=== PATIENT | female | born 1935 | race Caucasian/White ===

== ENCOUNTER 2016-07-06 13:00 | Day surgery (SDC) | payer MEDICARE ==
[~2016-07-06] VITALS: Ht 165.1 cm; Wt 60.3 kg
[~2016-07-06 13:00] MED LIST: 0.9% Sodium Chloride 1,000 ML IV SCH; ASPI81TA3 PO; ATOR40TA69 PO; CARV3.122 PO; CITA20TA11 PO; DIPH1TAB PO; FLAX100038 PO; IRON PO; LEVO100T45 PO; Lactated Ringer's 1,000 ML IV ONE; OMEP40CA36 PO; Sodium Chloride LOK Flush 10 mL Syringe IV PRN; fentaNYL-PF 50 mCg/mL 2 mL Inj IVPUSH PRN
[2016-07-06 13:51] VITALS: BP 146/70; PULSE 62; RESP 16; O2SAT 100
--- NOTE | 2016-07-06 15:30 | PCM.ENDEGD ---
EGD Date of Service: July 06, 2016 Physician Ayaz Hung MD Pre Procedure Diagnosis: Dysphagia and diarrhea Post Procedure Dx & Findings: Fundic polyp Procedure Esophagogastroduodenoscopy PROCEDURE IN DETAIL: After proper sedation, Olympus video endoscope was inserted into patient's mouth and esophagus was successfully intubated. Scope introduced esophagus. Esophagus showed normal shiny whitish mucosa consistent with squamous cell component. Z line was intact at 30 cm from the incisors. The scope further advanced to the stomach. Stomach showed normal shiny mucosa with normal appearing rugae folds without any ulcer mass erosion. Stomach showed a few small fundic polyps less than 2 mm in size. Sampling biopsies obtained. Cardia fundus body antrum pylorus were all visualized. Retroflexion was done. Stomach was easily inflated and deflatable using air. Scope further events to the distal duodenum. Duodenum revealed normal villous structures with normal appearing folds without any mass ulcer erosion. 5 biopsies obtained to rule out celiac disease. Impression Fundic polyps Recommendation Biopsies Presedation Assessment Risks and Benefits Informed consent was obtained from the patient after all risks and benefits including but not limited to drug reaction, infection, pain, bleeding, perforation, as well as alternatives were discussed. Patient monitoring Continuous pulse oximetry, cardiac monitoring, blood pressure monitoring, IV access, and oxygen at 2L per nasal cannula. Periprocedural Fentanyl: Fentanyl 125mcg Incrementally Midazolam: Midazolam 5mg Incrementally Complications There were no periprocedural complications identified. Post Procedure Plan Post Procedure Recommendations 1. Restrict activities today. 2. Resume normal activities in the morning. 3. Resume medications. 4. GERD behavioral modification: - Avoid fatty, acidic, spicy, large meals - Do not lie down after meals - Do not eat or drink anything for at least 2 1/2 hours before going to bed at night - Discontinue tobacco and alcohol - Decrease or avoid caffeine - Avoid chocolate and mints - Decrease weight - Avoid aspirin and non steroidal anti-inflammatory agents (NSAID) such as Aleve, Advil, Mobic, Naproxen, Ibuprofen, etc 5. Add proton pump inhibitor. Take 30 minutes before 1st meal of the day. 6. Patient informed of normal post procedure side effects as bloating, drowsiness, blood streaking in the stool 7. If gastric biopsy reveal H.pylori, continue with appropriate treatment 8. If small bowel biopsy reveals celiac, continue with appropriate treatment 9. Please don't hesitate to call me with any questions Ayaz Hung MD July 06, 2016 15:30
--- NOTE | 2016-07-06 15:32 | PCM.ENDCOL ---
Colonoscopy Date of Service: July 06, 2016 Physician Ayaz Hung MD Pre Procedure Diagnosis: Diarrhea personal history of colon polyp Post Procedure Dx & Findings: Diverticula hemorrhoids Procedure Colonoscopy PROCEDURE IN DETAIL: Prep adequate Withdrawal time 9 minutes After unremarkable rectal examination the Olympus video colonoscope was inserted patient's anal canal and was advanced to cecum. Landmarks were identified including the ileocecal valve and appendiceal orifice. Scope advanced into the terminal ileum. The visualized terminal ileum showed normal villous structures without any ulcer mass or erosions. Scope was withdrawn systematically. Visualized colonic mucosa showed healthy shiny mucosa with normal healthy-appearing vasculature. Few small diverticula noted in the sigmoid colon. Random biopsies obtained from the cecum to the rectum for workup of diarrhea. In the rectum retroflexion was done which showed hemorrhoids. Anal canal was inspected carefully on the way out and hemorrhoids noted. Impression Normal TI Normal colon and random biopsies obtained Personal history of colon polyp Diverticuli Hemorrhoids Recommendation Repeat colonoscopy 5 years Diverticular diet Presedation Assessment Risks and Benefits Informed consent was obtained from the patient after all risks and benefits including but not limited to drug reaction, infection, pain, bleeding, perforation, as well as alternatives were discussed. Patient monitoring Continuous pulse oximetry, cardiac monitoring, blood pressure monitoring, IV access, and oxygen at 2L per nasal cannula. Complications There were no periprocedural complications identified. Post Procedure Plan Post Procedure Recommendations 1. Restrict activities today. 2. Resume normal activities in the morning. 3. Resume medications. 4. Patient informed of normal post procedure side effects as bloating, drowsiness, blood streaking in the stool. 5. average risk CRCS. If colon polyps come back as: -Hyperplastic- can repeat colonoscopy in 10 years -Tubular adenoma- repeat colonoscopy in 5 years -Tubulovillous/villous adenoma- repeat colonoscopy in 3 years -If any dysplasia- return to clinic as soon as possible 6. Please don't hesitate to call me with any questions. Ayaz Hung MD July 06, 2016 15:31
[2016-07-06 15:33] VITALS: BP 135/61; PULSE 66; RESP 16; O2SAT 99
[2016-07-06 15:43] VITALS: BP 118/49; PULSE 67; RESP 16; O2SAT 100
[2016-07-06 15:45] VITALS: BP 134/57; PULSE 62; RESP 16; O2SAT 100
--- NOTE | 2016-07-09 14:33 | PATH ---
SURGICAL PATHOLOGY Attending Physician:Ayaz Hung M.D. CASE STATUS: Signed Out PATIENT NAME: HOLDEN STOKES PID: [id number] : 1935 DATE COLLECTED:07/06/2016 00:00 SPECIMEN: 1: Duodenum, Biopsy 2: Stomach, Polyp, Biopsy 3: Colon, Biopsy CLINICAL HISTORY: 1. DUODENAL BIOPSY 2. GASTRIC POLYP 3. RANDOM COLON BIOPSIES FINAL DIAGNOSIS: A. Duodenal Biopsy: Duodenal mucosa with no diagnostic abnormality. Negative for active inflammation, features of sprue, dysplasia, or malignancy. B. Gastric Polyp, Biopsy: Fundic gland polyp. Negative for dysplasia and malignancy. C. Random Colon Biopsies: Colonic mucosa with no diagnostic abnormality. Negative for active, chronic, and microscopic colitis. Negative for dysplasia and malignancy. ICD 10: K29.7 GROSS DESCRIPTION: The specimen is received in three formalin filled containers labeled with the patient's name. 1). The specimen is sublabeled "duodenal" and consists of 4 tiny portions of tissue which aggregate to 0.3 x 0.3 x 0.2 CM. The specimen is entirely submitted in cassette 1A. 2). The specimen is sublabeled "gastric polyp" and consists of a 0.3 x 0.2 x 0.2 CM portion of tissue which is entirely submitted in cassette 2A. 3). The specimen is sublabeled "random colon" and consists of multiple portions of tissue which aggregate to 0.4 x 0.4 x 0.3 CM. The specimen is entirely submitted in cassette 3A. 07/07/2016 [facility] ICD-9 CODES: CPT CODES: 1: 13466 2: 98937 3: 13815 Electronically Signed Out Lissett Kidd MD [facility] [address], [place] [address] Technical component performed at [facility], [facility] [address], [place], [address]
== END 2016-07-06 23:59 | disposition home or self-care (01) ==
LOC: END 13:00
PROVIDERS: ATTEND Internal Medicine
DX: K57.30 Diverticulosis of large intestine without perforation or abscess without bleeding (principal); K64.8 Other hemorrhoids; K31.7 Polyp of stomach and duodenum; R19.7 Diarrhea, unspecified; K22.4 Dyskinesia of esophagus; Z86.010 Personal history of colon polyps; Z79.82 Long term (current) use of aspirin; Z79.899 Other long term (current) drug therapy; Z87.891 Personal history of nicotine dependence
CPT/HCPCS: 43239; 45380; 88305; 99153; G0500; J7030

== ENCOUNTER 2016-07-21 09:37 | Observation (INO) | payer MEDICARE ==
[~2016-07-21] VITALS: Ht 165.1 cm; Wt 62.6 kg
[2016-07-21] VITALS (9 sets, daily range): BP systolic 122–168; BP diastolic 61–95; PULSE 64–74; RESP 14–21; O2SAT 98–100
[~2016-07-21 09:37] MED LIST changes: -0.9% Sodium Chloride 1,000 ML IV SCH; -Lactated Ringer's 1,000 ML IV ONE; -Sodium Chloride LOK Flush 10 mL Syringe IV PRN; -fentaNYL-PF 50 mCg/mL 2 mL Inj IVPUSH PRN
--- NOTE | 2016-07-21 09:51 | ED.REPORT ---
HPI-Abd Pain F 2 and Over Date of Service July 21, 2016 ED Provider: Derrick Chung MD History of Present Illness: Please note that the wrong template was used accientally This is a chest pain patient, not a pediatric abdominal pain. 81 y/o female with a hx of CAD (s/p CABG), peripheral vascular disease status post endarterectomy and HTN presents to the ED complaining of intermittent chest pain, onset last night, which radiates to her neck. The pt reports she has had the pain for a month but yesterday's episode was significantly worse.The pain always starts in the evening and lasts about 5 minutes. Last night her pain began at 1900 and was intermittent until 2029. The pt reports the pain resolves when she lays down but returns after she gets up. She had to lay down 4 times yesterday, which was unusual. Her sx are not exacerbated with exertion. Her sx resolved after she took Nitroglycerin last night. The pt reports she does not have any pain currently but her chest is sore. Associated sx include diaphoresis, nausea and slight lightheadedness. She denies SOB, palpitations, lower extremity edema, fever, cough and hx of blood clots. The pt did not take an Aspirin today. The pt reports these sx are not similar to the sx she experienced before her bypass. She was dyspneic then but not this time. The pt also had an endoscopy for possible GERD which resulted normal. She has never had a stress test. Nursing Notes Stated Complaint: CHEST PAIN Chief Complaint: Chest Pain Nursing Notes Reviewed: Yes (nPario, Vascular Therapies not reconciled) Allergies: Coded Allergies: Penicillins (Verified Allergy, Mild, RASH, 07/05/16) Uncoded Allergies: PENICILLIN (Allergy, Unknown, 07/16/14) Scheduled Aspirin Chew (Aspirin Chew) 81 Mg Chew 81 MG PO DAILY Atorvastatin Calcium (Atorvastatin Calcium) 40 Mg Tablet 40 MG PO DAILY Carvedilol (Carvedilol) 3.125 Mg Tablet 3.125 MG PO BID Citalopram (Citalopram) 20 Mg Tablet 20 MG PO DAILY Flaxseed Oil (Accord-3 Flaxseed Oil) 1,000 Mg Capsule 1,000 MG PO DAILY Ipratropium [place] (Ipratropium [place] 0.06% Nasal) 15 Ml [place] 1 SPRAY NS TID Levothyroxine (Levoxyl) 100 Mcg Tablet 100 MCG PO DAILY Omeprazole (Omeprazole) 40 Mg Capsule.dr 40 MG PO DAILY Miscellaneous Medications Diphenoxylate/Atropine 2.5-0.025 mg (Lomotil 2.5-0.025 mg) 1 Each Tablet 1 TABLET PO General Time Seen by MD: 09:50 Chief Complaint Other (Chest pain) Hx Obtained from: Patient Arrived by: Walk-in Sudden in Onset?: No Onset Occurred: Yesterday Symptom Duration: 1 - 15 minutes Progression since onset: Resolved Quality: Painful Severity: Current: No pain currently Severity: Maximum: Moderate Recent Healthcare: Recent doctor visit Similar Sx Previous: No Past Medical History Past Medical History Coronary artery Disease status post CABG History of non-Hodgkin's lymphoma in 2012 Previous history of epilepsy and diagnosed in 1971, reports last seizure 1989 Hypothyroidism Hyperlipidemia GERD HTN Depression Past Surgical History CABG three-vessel in August 2012 Carotid endarterectomy on the right 2006 Fistulectomy 1986 Several toe surgery Hysterectomy 1976 Tinsley's neuroma surgery in 1969 Colonoscopy notable for hemorrhoids and diverticula in July 2016 Upper endoscopy gastric fundus polyp July 2016 Smoking History Former Smoker Ambulatory Status Ambulatory Status: Independent Review of Systems Constitutional: Denies: Fever Respiratory: Denies: Non-productive cough, Shortness of breath Cardiovascular: Reports: Chest pain, Denies: Edema, Palpitations GI: Reports: Nausea Musculoskeletal: Reports: Neck pain Complete sys rev & neg: except as marked. Skin: Reports Diaphoresis Neurologic: Reports: Lightheaded Physical Exam Initial Vital Signs Vital Signs (First) Date Time Temp Pulse Resp B/P Pulse Ox O2 Delivery O2 Flow Rate FiO2 07/21/16 09:40 36.2 70 16 168/71 100 Room Air Initial VS: Reviewed, Vital signs normal, Vital signs abnormal (mild HTN) Head / Eyes: Atraumatic, Normocephalic, PERRL Neck: Supple, Non-tender, Full range of motion Extremities: Vascular intact, Neuro intact, No swelling, No tenderness Skin: Warm, Dry, No cyanosis Neurologic: Alert, Oriented, Nonfocal General / Constitutional: Awake, Alert, No apparent distress, Well appearing Respiratory / Chest: Atraumatic, Breath sounds NL, Breath sounds = bilat, No respiratory distress, No rales, No rhonchi, No wheezing Cardiovascular: Heart rate NL, Regular rhythm, Heart sounds NL, No gallop, No murmurs, No rubs Abdomen: Atraumatic, Soft, Non-tender Back: Atraumatic, Full range of motion Upper Extremity / MS: Atraumatic, Full range of motion, Neurologic intact, Vascular intact Lower Extremity / Pelvis / MS: Atraumatic, Full range of motion, Neurologic intact, Vascular intact Interpretation & Diagnostics Lab Results Interpretation Result Diagram: 07/21/16 1011 07/21/16 1011 Test 07/21/16 05:05 07/21/16 10:11 07/21/16 11:25 Pro-B-Type Natriuretic Peptide 308.9pg/mL (0-738) White Blood Count 4.2th/mm3 (3.8-10.1) Red Blood Count 4.77mil/mm3 (3.90-5.20) Hemoglobin 13.3g/dL (12.0-15.6) Hematocrit 40.2% (35.0-46.0) Mean Corpuscular Volume 84.3fL (81-100) Mean Corpuscular Hemoglobin 27.9pg (27.0-35.0) Mean Corpuscular Hemoglobin Concent 33.1% (32.0-37.0) Red Cell Distribution Width 13.1% (12.3-15.4) Platelet Count 173bil/L (150-400) Neutrophils (%) (Auto) 63.9% (40-74) Lymphocytes (%) (Auto) 22.6% (14-46) Monocytes (%) (Auto) 8.3% (4-12) Eosinophils (%) (Auto) 4.5% (0-5) Basophils (%) (Auto) 0.5% (0-3) Sodium Level 136mEq/L (134-144) Potassium Level 4.0mEq/L (3.5-5.2) Chloride Level 98mEq/L (97-108) Carbon Dioxide Level 26mmol/L (18-29) Blood Urea Nitrogen 12mg/dL (8-27) Creatinine 0.54mg/dL (0.57-1.00) Estimat Glomerular Filtration Rate 156mL/min (>59) Glucose Level 118mg/dL (60-99) Calcium Level 9.3mg/dL (8.5-10.1) Magnesium Level 2.0mg/dL (1.6-2.6) Total Bilirubin 0.4mg/dL (0.0-1.2) Aspartate Amino Transf (AST/SGOT) 17U/L (0-50) Alanine Aminotransferase (ALT/SGPT) 15U/L (0-32) Alkaline Phosphatase 95U/L (25-165) Troponin T 0.010ug/L (0.0-0.011) Total Protein 6.3g/dL (6.4-8.4) Albumin 4.0g/dL (3.4-5.0) Hold Urine Received (Received) Lab Results Interpretation: CBC normal CMP normal Troponin #1 negative X-Ray Chest Interpretation Chest Xray Interpretation: IMPRESSION: No acute cardiopulmonary disease. Dictated by: Petros Engle M.D. on 07/21/2016 at 10:50 Approved by: Petros Engle M.D. on 07/21/2016 at 10:51 View: Portable, 1 view Interpretation / Wet Read by: Interpret - Radiologist ECG Interpretation ECG Interpretation: Normal sinus rhythm. Rate 69 No abnormalities. Time: 10:02 Interpreted by: ED physician Re-Eval/Medical Decision Med Decision/Clinical Course This is an 81-year-old female known coronary disease status post coronary bypass , peripheral vascular disease status post endarterectomy, who presents with recurrent episodes of chest discomfort. Symptoms are somewhat atypical, and anchoring intermittently over the past several weeks to month, but escalated in traumatic severity yesterday evening. She had multiple bouts of discomfort. It is not clearly exertional but as a pressure tightness on the left side of the chest. She is followed by her bit tripoler Dr. Leon, and call the office due to some of these episodes this past week and received a prescription for nitroglycerin which she filled yesterday, and then last night when the symptoms escalated cheese the nitroglycerin and the symptoms resolved. The patient is currently asymptomatic. She appears clinically well the normal physical exam. Her EKG is normal. Starting blood work is normal. However overall HEART score is 5 and admission for serial enzymes and probable stress testing is warranted. Patient received aspirin which he has not yet had today. She had Nitropaste applied. Chest x-ray is normal. With the on-call bit tripoler, but given the patient's initial EKG and troponins are normal-the current plan is admission to the hospitalist service for serial enzymes and probable stress testing, with the recommendation should any abnormalities or issues occur, that cardiology be directly consulted at that time. Source of Hx: Old records Re-Evaluation/Progress : Time of Eval: 11:31 Re-Evaluation/Progress Note: Pt rechecked. Discussed imaging results. Informed the pt the plan to admit after recieving lab results. Pt understands and agrees with the plan for admission. All questions addressed. Differential Dx Notes: Doubt PE, no evidence of pneumothorax, pneumonia, pancreatitis, dissection Counseled Regarding: Diagnosis, Lab results, Need for admission Discharge & Departure Impression: Primary Impression: Chest pain Chest pain type: unspecified Qualified Code: R07.9 - Chest pain, unspecified Disposition: ADMITTED TO HOSPITAL Discharge Condition All VS Reviewed: Yes Referrals: Santiago Zavala MD (PCP) Scribe Attestation Portions of this note were transcribed by Gerry Sarmiento. I, , personally performed the history, physical exam and medical decision-making;I reviewed and confirmed the accuracy of the information in the transcribed note. Signed by Gerry Sarmiento, Sharynibe. 07/21/16 1433 Santiago Zavala MD, Matthew F MD July 21, 2016 09:51 Gerry Sarmiento July 21, 2016 10:00
[2016-07-21] MEDS ORDERED: Nitroglycerin 2% 1 Gm Ointment TOPICAL ONE (09:55)
[2016-07-21 10:22] LABS: BASOPHILS % (AUTO) 0.5 % (0-3); EOSINOPHILS % (AUTO) 4.5 % (0-5); MONOCYTES % (AUTO) 8.3 % (4-12); Mean Corpuscular Hemoglobin 27.9 pg (27.0-35.0); Mean Corpuscular Volume 84.3 fL (81-100); NEUTROPHILS % (AUTO) 63.9 % (40-74); Platelet Count 173 bil/L (150-400)
[2016-07-21 10:43] LABS: TROPONIN T 0.01 ug/L (0.0-0.011)
--- NOTE | 2016-07-21 10:52 | DRSVH ---
PROCEDURE: X-RAY CHEST ONE VIEW, PORTABLE ([id number]) INDICATIONS: CHEST PAIN TECHNIQUE: One view of the chest was acquired. COMPARISON: None. FINDINGS: Surgical changes and devices: Sternotomy. Lungs and pleura: No pleural effusions or pneumothorax. Lungs are clear. Mediastinum: Mediastinal contours appear normal. Heart size is normal. Bones and chest wall: No suspicious bony lesions. Overlying soft tissues appear unremarkable. IMPRESSION: No acute cardiopulmonary disease. Dictated by: Petros Engle M.D. on 07/21/2016 at 10:50 Approved by: Petros Engle M.D. on 07/21/2016 at 10:51
[2016-07-21] MEDS ORDERED: IPRA15SP NS (12:34)
--- NOTE | 2016-07-21 12:58 | PCM.HPMED ---
Subjective Date of Service July 21, 2016 Primary Provider: Admitting Physician: Yanni Espinoza DO Primary Care Physician: Edy Cameron MD Attending Physician: Yanni Espinoza DO Admit Status: From the Emergency Department Chief Complaint: chest pain History of Present Illness: 81-year-old pleasant white female with past medical history of CAD status post CABG, asthma, peripheral vascular disease status post endarterectomy, hypertension, non-Hodgkin's lymphoma in 2012 for which she is in remission for, previous history of epilepsy in 1971, hypothyroidism is presenting to the ER with the chief complaint of chest pain she describes it as a pressure sensation. She states that she has been having symptoms on and off for a month intermittent chest pain radiating to her neck. Pain starts usually in the evenings after eating dinner last about 5 minutes however the last time the pain started it was intermittent and was longer lasting. Pain is resolved with laying down. Exercise or activity does not make it worse. He had to lay down several times yesterday. Symptoms have resolved after using nitroglycerin last night. States that her chest is sore. Similar Symptoms were present when she had her [place]. Patient denies leg pain dyspnea, diarrhea, constipation, headache, dizziness, urinary symptoms. She is endorsing diaphoresis, nausea, bad hip pain. She denies pain in her teeth/jaw. She does feel pain going into to her neck, also endorses radiation into the back. She sees national sales consultant Dr. Cesar, has an appointment to see her on the . In the ER troponin is negative aspirin and nitro paste were given. Chest x-ray was nonacute. CT scan, showed no abnormalities. 2014 echo shows 50-55% EF with mild mitral regurgitation. Patient is admitted to the Green team for ACS rule out Review of Systems: Gen.: No weight gain patient has been having fevers and malaise Eyes: no visual disturbances or blurring vision HEENT: No nose/throat drainage, no pain in ears or throat, no hearing loss Lymph: No lymph nodes noted Cardiac: chest pain as above, denies orthopnea, PND, palpitations , pedal edema or +dyspnea on exertion Pulmonary: denies wheezing or bringing up of sputum +denies worsening dyspnea and cough GI: No anorexia nausea vomiting blood or black in the stool : no dysuria hematuria urinary frequency or decrease in urine output Musculoskeletal: Joint swelling no joint pain no new muscle aches , does have chronic back pain Neuro: No syncope, seizures no loss of consciousness no new focal weakness, numbness or tingling Psychiatric: New new anxiety insomnia or depression Endocrine: No new heat or cold intolerances polyuria or polydipsia Hematology: No lymphadenopathy or easy bleeding or bruising noted skin: No new rashes, stasis dermatitis All other review of systems negative except as stated above and in the history of present illness Allergies Coded Allergies: Penicillins (Verified Allergy, Mild, RASH, 07/05/16) Uncoded Allergies: PENICILLIN (Allergy, Unknown, 07/16/14) PMH Remarkable for CAD status post CABG, Peripheral vascular disease status post endarterectomy, remote asthma, hypertension, not non-Hodgkin's lymphoma in remission, previous history of epilepsy, hypothyroidism, hyperlipidemia, GERD, depression, Surgical History Remarkable for endoscopy, CABG, carotid surgery, fistulectomy, Tinsley's neuroma , colonoscopy, upper GI scope Family History Pertinent for sister with diabetes, brother with Parkinson's, mom lived up to be 102, father of heart disease at 65, brother has heart disease and Esophageal cancer Social History Hx Alcohol Use: No (SOBER FOR 31 YRS ) Hx Substance Use: No Smoking Status: Former Smoker Living Arrangement: with Family Additional Information Walks 2-2 and half miles 4-5 days times a week Exam Vital Signs Vital Sign - Last Date Time Temp Pulse Resp B/P Pulse Ox O2 Delivery O2 Flow Rate FiO2 07/21/16 11:07 67 18 128/70 98 Room Air 07/21/16 09:40 36.2 Exam Gen.: No acute distress much younger appearing HEENT: Normocephalic, atraumatic Heart: Regular rate and rhythm soft systolic murmur Neck: Negative for carotid bruits, neck trachea central, negative for JVD Lungs: Clear to auscultation services abdomen soft nontender nondistended normal bowel sounds extremities: negative for edema psych: negative for anxiety neuro no focal deficits skin warm Lab and Diagnostics Result Diagram: 07/21/16 1011 07/21/16 1011 X-Rays, CTs and MRIs PROCEDURE: X-RAY CHEST ONE VIEW, PORTABLE ([id number]) INDICATIONS: CHEST PAIN IMPRESSION: No acute cardiopulmonary disease. Dictated by: Petros Engle M.D. on 07/21/2016 at 10:50 Approved by: Petros Engle M.D. on 07/21/2016 at 10:51 Assessment & Plan This is a healthy 81-year-old female with full functional capacity presenting for ACS rule out Assessment #1 chest pain: Present admission, resolved in the ER -- She has enough risk factors to consider a stress test, we will order an exercise stress test for tomorrow -- Telemonitoring -- Trended troponins -- Enoxaparin DVT prophylaxis -- Morphine when necessary for dyspnea, oxygen as needed -- Patient is already on atorvastatin, carvedilol. #2 CAD, chronic -- Continue home statin -- Continue aspirin, carvedilol #3 hypothyroidism, chronic -- Continue home medications levothyroxine #4 GERD, chronic Continue home medication pantoprazole #5 Depression, chronic -- Continue home medications citalopram Disposition: Patient may be able to discharge home on 07/22 if her stress test is negative and no further interventions are needed Pain Evaluation: Adequate Pain Control GI Prophylaxis: Proton Pump Inhibitor VTE Prophylaxis: Sub-Q Enoxaparin Resuscitation Status: CPR: Attempt Resuscitation (has bandages her alternate decision-maker) Time spent 45 minutes Yanni Espinoza DO July 21, 2016 12:58
[2016-07-21] MEDS ORDERED: Ondansetron 2 mg/mL 2 mL Inj IVPUSH PRN (13:00)
[2016-07-21] MEDS ORDERED: Alum-Mag Hydrox-Simeth 30 mL Suspension PO PRN (13:00)
[2016-07-21] MEDS ORDERED: Polyethylene Glycol (PEG) 17 Gm Powder PO PRN (13:00)
--- NOTE | 2016-07-21 13:56 | NUR ---
admit to room 3006 patient arrived to rm 3006 at 1345hrs. assumed care at that time. patient A&Ox3, denies CP/SOB, N/V, Dizziness or lightheadedness. oriented to room and plan of care. patient verbalized understanding.
--- NOTE | 2016-07-21 15:11 | NUR ---
Social Work-initial assessment: Data:See initial assessment. Pt is an 81 y/o female who was admitted on 07/21/16 for chest pain per H&P. Pt's insurance is [email or web address] and [employer] and PCP is Edy Cameron MD. EMR Reviewed. Pt's readmission score is not available. SW met with pt, Bhupendra and dtr Sury to discuss discharge planning, SW role explained. Pt is alert and oriented x3. Pt resides at home with in a single level home in senior housing at [facility]. Pt remains independent with basic ADLs, uses no DME and drives POV. Pt has no HH history and history with SNF in [place]. Pt has completed DPOA/ advanced directive and SW requested copies for the hospital. Pt has no adjunct faculty for medical terminology care or VA benefits. Pt's family to provide transport home at discharge. SW provided phone number and plan on white board in room. No needs assessed at this time. SW will continue to follow for needs. Assessment:Pt who resides at home with and is independent at baseline. Plan:Pt to likely discharge home via POV with no needs. SW will continue to follow. MONSE Sarmiento Addendum: 07/21/16 at 1521 by JUDY DAVIS Amended: Links added.
[2016-07-21] MEDS: Sodium Chloride LOK Flush 10 mL Syringe IVFLUSH SCH ×2 (16:19→23:45)
[2016-07-21 16:35] LABS: Creatine Kinase 47 U/L (21-215)
[2016-07-21 16:38] LABS: TROPONIN T < 0.010 ug/L (0.0-0.011)
--- NOTE | 2016-07-21 18:18 | NUR ---
Shift update patient A&Ox3, independent in room. denies CP/SOB, N/V, Dizziness. patient and family educated about plan of care, stress test in am and NPO after midnight. patient aware that she needs to report any pain/discomfort to greenhouse staff. continue to monitor.
[2016-07-21] MEDS: Ipratropium 0.03% 30 mL Nasal Spray Bottle NASAL SCH (20:02)
[2016-07-21 23:08] LABS: Creatine Kinase 42 U/L (21-215)
[2016-07-22] VITALS (8 sets, daily range): BP systolic 113–124; BP diastolic 56–66; PULSE 62–80; RESP 16–19; O2SAT 95–99
--- NOTE | 2016-07-22 04:02 | NUR ---
NOC shift report Patient has denied chest pain through the night. Telemetry is SR 60's with first degree block and PVC's per tech. NPO at midnight. HS dose of Coreg not given. Patient has remained alert and oriented, calm and cooperative. Call light within reach, intentional rounding in place.
[2016-07-22 06:26] LABS: BASOPHILS % (AUTO) 0.6 % (0-3); EOSINOPHILS % (AUTO) 5.4 % (0-5); MONOCYTES % (AUTO) 8.9 % (4-12); Mean Corpuscular Hemoglobin 28.3 pg (27.0-35.0); Mean Corpuscular Volume 84.8 fL (81-100); NEUTROPHILS % (AUTO) 54.5 % (40-74); Platelet Count 161 bil/L (150-400)
[2016-07-22] MEDS ORDERED: Pantoprazole 20 mg ER24 Tablet PO SCH (07:30)
--- NOTE | 2016-07-22 08:09 | NUR ---
Off Unit: [facility] @ approx 0805 via wheelchair accompanied by transporter. household appliances service technician notified. No complaints of pain at time of transport.
[2016-07-22] MEDS: Ipratropium 0.03% 30 mL Nasal Spray Bottle NASAL SCH (08:30)
[2016-07-22] MEDS ORDERED: NITR0.4T6 SL/PO (10:04)
[2016-07-22] MEDS ORDERED: PANT40TA3 PO (10:04)
--- NOTE | 2016-07-22 10:32 | NUR ---
Case Management: JONATHAN given and explained to pt. Liliane MARCANORN
[2016-07-22] MEDS: Sodium Chloride LOK Flush 10 mL Syringe IVFLUSH SCH (11:45)
--- NOTE | 2016-07-22 13:11 | DRSVH ---
PROCEDURE: 1 DAY TREADMILL STRESS TEST INDICATIONS: THE PATIENT IS AN 81-YEAR-OLD PATIENT WITH A KNOWN HISTORY OF ISCHEMIC HEART DISEASE P RESENTING TO [facility] WITH SYMPTOMS OF ATYPICAL CHEST DISCOMFORT. NUCLEAR CARDIAC STRE SS STUDY IS PERFORMED TO EXCLUDE SIGNIFICANT RECURRENT ISCHEMIA. COMPARISON: None. STRESS TEST: This patient is exercised according to a regular Norris protocol for a total time of 7 m inutes and 23 seconds achieving an exercise tolerance 62% better than expected for an active 81-year- old woman. She had a somewhat blunted blood pressure response to exercise and achieved a peak heart rate of 139 beats per minute representing 99% of her maximum predicted heart rate. Baseline EKG show ed no significant abnormalities other than occasional PVCs. With exertion, she developed symptoms of mild chest heaviness with radiation into the back and shoulders that resolved within 4 minutes into the recovery period. This was not accompanied by any significant diagnostic EKG abnormalities. PROCEDURE: This patient received 8.61 millicuries of technetium-99 tetrofosmin for the resting porti on of the examination. She subsequently underwent her exercise treadmill stress test and received an additional 25.4 millicuries of technetium-99 tetrofosmin. FINDINGS: Raw data: Raw data images demonstrate overall good image quality. No significant source of artifact or interference is identified. Quantitative gated SPECT imaging: Gated images show a small left ventricle with an end-diastolic vol ume of 52 cc. Overall ejection fraction estimated at 73%. No regional wall motion abnormalities are noted. Quantitative perfusion SPECT imaging: Stress myocardial perfusion imaging shows a modest amount of d iaphragmatic attenuation which is reversed with prone imaging. The stress, rest and prone images dem onstrate a focal apical area of hypoperfusion which is a bit more than one would expect with normal a pical thinning and may represent a previous nontransmural small apical infarction. I do not see any reversible perfusion abnormalities that would suggest ischemia. IMPRESSION: 1. Probably normal nuclear cardiac stress study: a. Superb exercise capacity with no EKG changes of ischemia but with symptoms of exertional chest and intrascapular back discomfort. b. Small hyperdynamic left ventricle with no regional wall motion abnormalities seen. c. Moderately small fixed apical area of hypoperfusion that may represent normal apical thinning but a small apical nontransmural infarction cannot be excluded. No reversible myocardial perfusion a bnormalities that would suggest reversible ischemia. Clinical correlation suggested in this patient with a history of known ischemic heart disease. Overall this test is low risk. Dictated by: Malcolm Meadows M.D. on 07/22/2016 at 12:30 Transcribed by: MARTÍN on 07/22/2016 at 16:11 Approved by: Malcolm Meadows M.D. on 07/22/2016 at 17:20
[2016-07-22] MEDS ORDERED: LISI2.5T PO (13:19)
--- NOTE | 2016-07-22 13:19 | NUR ---
Social Work: Discharge Data: Pt is on day 1 of hospitalization. EMR reviewed. D/C orders are in. No d/c planning needs at this time. LIFE ENRICHMENT ASSISTANT will continue to follow if needs arise. Assessment: Pt who is independent at baseline. Plan: Pt will d/c home via POV today. No d/c planning needs at this time. LIFE ENRICHMENT ASSISTANT will continue to follow if needs arise. MONSE Dhillon
--- NOTE | 2016-07-22 13:20 | PCM.DIMED ---
Discharge Instructions Date of Service July 22, 2016 Dates of Hospitalization July 21, 2016 at 12:43 Discharge Diagnosis Discharge Diagnosis CAD s/p CABG, HTN, HLD, Hypothyroidism Medication Instructions Please note lisinopril is your new medication Diet Heart Healthy Activity No restrictions Call your provider Fever or Chills, Shortness of breath, Bleeding, Chest pain, Vomitting, Excessive diarrhea, Weakness (unilateral) Patient Instructions Follow-up plan Please f/u with your director pharmacovigilance in 2-3 weeks Please f/u with PCP in one week Yanni Espinoza DO July 22, 2016 13:20
--- NOTE | 2016-07-22 14:16 | NUR ---
Discharge: Patient discharged to home @ approx 1415. IV d/c'd intact, telemetry removed, potline monitor notified. Personal belongings sent home with patient. Reviewed new prescriptions, d/c instructions, home medication list and follow up appointments. Verbalized understanding. Ambulated to elevator accompanied by this RN and spouse. No apparent distress at time of discharge.
--- NOTE | 2016-07-22 23:08 | PCM.DC.MED ---
Discharge Summary Date of Service July 22, 2016 Dates of Hospitalization Date of Hospital Admission July 21, 2016 at 12:43 Date of Discharge: July 22, 2016 Providers: Admitting Physician: Yanni Hanley DO Primary Care Physician: Edy Cameron MD Attending Physician: Yanni Hanley DO Diagnosis at Time of Discharge Diagnosis at Time of Discharge CAD s/p CABG, HTN, HLD, Hypothyroidism Consultations None Procedures XRay, CTs & MRIs PROCEDURE: X-RAY CHEST ONE VIEW, PORTABLE ([id number]) INDICATIONS: CHEST PAIN IMPRESSION: No acute cardiopulmonary disease. Dictated by: Petros Engle M.D. on 07/21/2016 at 10:50 Approved by: Petros Engle M.D. on 07/21/2016 at 10:51 Other Diagnostics 07/22 stress test exercise IMPRESSION: 1. Probably normal nuclear cardiac stress study: a. Superb exercise capacity with no EKG changes of ischemia but with symptoms of exertional chest and intrascapular back discomfort. b. Small hyperdynamic left ventricle with no regional wall motion abnormalities seen. c. Moderately small fixed apical area of hypoperfusion that may represent normal apical thinning but a small apical nontransmural infarction cannot be excluded. No reversible myocardial perfusion abnormalities that would suggest reversible ischemia. Clinical correlation suggested in this patient with a history of known ischemic heart disease. Overall this test is low risk. Dictated by: Malcolm Meadows M.D. on 07/22/2016 at 12:30 Transcribed by: MARTÍN on 07/22/2016 at 16:11 Approved by: Malcolm Meadows M.D. on 07/22/2016 at 17:20 Brief History 81-year-old pleasant white female with past medical history of CAD status post CABG, asthma, peripheral vascular disease status post endarterectomy, hypertension, non-Hodgkin's lymphoma in 2012 for which she is in remission for, previous history of epilepsy in 1971, hypothyroidism is presenting to the ER with the chief complaint of chest pain she describes it as a pressure sensation. She states that she has been having symptoms on and off for a month intermittent chest pain radiating to her neck. Pain starts usually in the evenings after eating dinner last about 5 minutes however the last time the pain started it was intermittent and was longer lasting. Pain is resolved with laying down. Exercise or activity does not make it worse. He had to lay down several times yesterday. Symptoms have resolved after using nitroglycerin last night. States that her chest is sore. Similar Symptoms were present when she had her [place]. Patient denies leg pain dyspnea, diarrhea, constipation, headache, dizziness, urinary symptoms. She is endorsing diaphoresis, nausea, bad hip pain. She denies pain in her teeth/jaw. She does feel pain going into to her neck, also endorses radiation into the back. She sees adapted physical education teacher Dr. Cesar, has an appointment to see her on the . In the ER troponin is negative aspirin and nitro paste were given. Chest x-ray was nonacute. CT scan, showed no abnormalities. 2014 echo shows 50-55% EF with mild mitral regurgitation. Patient is admitted to the [facility] for ACS rule out Hospital Course This is a healthy 81-year-old female with full functional capacity presenting for ACS rule out Assessment #1 chest pain: Present admission, resolved in the ER -- She has enough risk factors to consider a stress test, we will order an exercise stress test : Stress test is low risk for Dr. Meadows. She had some back pain between the scapula during the peak phase of the exercise, she tells me that she is familiar with this and she does experience it sometimes when she is walking, this is why she takes exercise classes to stretch her back. -- Telemonitoring -- Trended troponins: ACS was ruled out overnight -- Enoxaparin DVT prophylaxis -- Morphine when necessary for dyspnea, oxygen as needed -- Patient is already on atorvastatin, carvedilol. Added Lisinopril to her regimen. -- Patient is asked to follow up with her adapted physical education teacher in 2-3 weeks -- Patient is asked to consider other etiologies such as esophageal dysmotility , musculoskeletal pain with the help of her family doctor. She is asked to follow up with the family physician in one week #2 CAD, chronic -- Continue home statin -- Continue aspirin, carvedilol -- Added lisinopril to her regimen #3 hypothyroidism, chronic -- Continue home medications levothyroxine #4 GERD, chronic Continue home medication pantoprazole #5 Depression, chronic -- Continue home medications citalopram Disposition: Patient may be able to discharge home on 07/22 if her stress test is negative and no further interventions are needed Exam Vital Signs (Last) Date Time Temp Pulse Resp B/P Pulse Ox O2 Delivery O2 Flow Rate FiO2 07/22/16 12:42 36.3 68 18 116/66 95 Room Air Exam Gen.: No acute distress much younger appearing HEENT: Normocephalic, atraumatic Heart: Regular rate and rhythm soft systolic murmur Neck: Negative for carotid bruits, neck trachea central, negative for JVD Lungs: Clear to auscultation services abdomen soft nontender nondistended normal bowel sounds extremities: negative for edema psych: negative for anxiety neuro no focal deficits skin warm Test 07/21/16 05:05 07/21/16 10:11 07/21/16 11:25 07/21/16 22:25 Pro-B-Type Natriuretic Peptide 308.9pg/mL (0-738) Magnesium Level 2.0mg/dL (1.6-2.6) Hold Urine Received (Received) Total Creatine Kinase 42U/L (21-215) Creatine Kinase MB 1.5ng/mL (0.0-5.3) Creatine Kinase MB % % (0.0-5.0) Troponin T 0.010ug/L (0.0-0.011) Test 07/22/16 05:42 White Blood Count 3.1th/mm3 (3.8-10.1) Red Blood Count 4.66mil/mm3 (3.90-5.20) Hemoglobin 13.2g/dL (12.0-15.6) Hematocrit 39.5% (35.0-46.0) Mean Corpuscular Volume 84.8fL (81-100) Mean Corpuscular Hemoglobin 28.3pg (27.0-35.0) Mean Corpuscular Hemoglobin Concent 33.4% (32.0-37.0) Red Cell Distribution Width 13.0% (12.3-15.4) Platelet Count 161bil/L (150-400) Neutrophils (%) (Auto) 54.5% (40-74) Lymphocytes (%) (Auto) 30.6% (14-46) Monocytes (%) (Auto) 8.9% (4-12) Eosinophils (%) (Auto) 5.4% (0-5) Basophils (%) (Auto) 0.6% (0-3) Sodium Level 141mEq/L (134-144) Potassium Level 4.7mEq/L (3.5-5.2) Chloride Level 103mEq/L (97-108) Carbon Dioxide Level 28mmol/L (18-29) Blood Urea Nitrogen 15mg/dL (8-27) Creatinine 0.58mg/dL (0.57-1.00) Estimat Glomerular Filtration Rate 143mL/min (>59) Glucose Level 97mg/dL (60-99) Calcium Level 9.3mg/dL (8.5-10.1) Total Bilirubin 0.3mg/dL (0.0-1.2) Aspartate Amino Transf (AST/SGOT) 18U/L (0-50) Alanine Aminotransferase (ALT/SGPT) 15U/L (0-32) Alkaline Phosphatase 94U/L (25-165) Total Protein 5.5g/dL (6.4-8.4) Albumin 3.6g/dL (3.4-5.0) Triglycerides Level 73mg/dL (0-149) Cholesterol Level 148mg/dL (100-199) LDL Cholesterol, Calculated 85.400mg/dL (0-99) VLDL Cholesterol 14.600mg/dL HDL Cholesterol 48mg/dL (>39) Cholesterol/HDL Ratio 3.08 (0.0-4.4) Discharge Medications Discharge Medications Aspirin Chew (Aspirin Chew) 81 Mg Chew 81 MG PO DAILY (Reported) Atorvastatin Calcium (Atorvastatin Calcium) 40 Mg Tablet 40 MG PO DAILY ( Reported) Carvedilol (Carvedilol) 3.125 Mg Tablet 3.125 MG PO BID (Reported) Citalopram (Citalopram) 20 Mg Tablet 20 MG PO DAILY (Reported) Flaxseed Oil (Irving-3 Flaxseed Oil) 1,000 Mg Capsule 1,000 MG PO DAILY (Reported ) Levothyroxine (Levoxyl) 100 Mcg Tablet 100 MCG PO DAILY (Reported) Lisinopril (Lisinopril) 2.5 Mg Tablet 2.5 MG PO DAILY Prescribed by: YANNI HANLEY DO Pantoprazole (Pantoprazole DR) 40 Mg Tablet.dr 40 MG PO DAILY (Reported) As needed Nitroglycerin SL (Nitroglycerin SL) 0.4 Mg Tab.subl 0.4 MG SL/PO Q5MIN PRN PRN For Chest Pain (Reported) Additional med instructions Please note lisinopril is your new medication Followup Plan Follow-up plan Please f/u with your adapted physical education teacher in 2-3 weeks Please f/u with PCP in one week Discharge Diet: Heart Healthy Discharge Activity: No restrictions Time spent Half an hour Yanni Hanley DO July 22, 2016 23:08
== END 2016-07-22 14:14 | disposition home or self-care (01) ==
LOC: SED 09:37 → MPC 12:43
PROVIDERS: ADMIT Family Medicine; ATTEND Family Medicine
DX: I25.10 Atherosclerotic heart disease of native coronary artery without angina pectoris (principal); Z95.1 Presence of aortocoronary bypass graft; I73.9 Peripheral vascular disease, unspecified; E78.5 Hyperlipidemia, unspecified; E03.9 Hypothyroidism, unspecified; K21.9 Gastro-esophageal reflux disease without esophagitis; I10 Essential (primary) hypertension; F32.9 Major depressive disorder, single episode, unspecified; C85.90 Non-Hodgkin lymphoma, unspecified, unspecified site; Z87.891 Personal history of nicotine dependence; Z79.82 Long term (current) use of aspirin
CPT/HCPCS: 36415; 71010; 78452; 80053; 80061; 82550; 82553; 83735; 83880; 84484; 85025; 93005; 93017; 99285; A9502; G0378; J1650